=== PATIENT | male | born 1940 | race Caucasian/White ===

== ENCOUNTER 2017-05-15 18:08 | Emergency (ER) | payer MEDICARE ==
[~2017-05-15] VITALS: Ht 172.7 cm; Wt 56.0 kg
[2017-05-15] MEDS ORDERED: LISI-170 PO (19:20)
[2017-05-15 19:21] VITALS: BP 109/71
[2017-05-15] MEDS ORDERED: OXYC-296 PO (19:21)
== END 2017-05-15 20:22 | disposition home or self-care (01) ==
LOC: ED 20:15
DX: S20.211A Contusion of right front wall of thorax, initial encounter (principal); F17.210 Nicotine dependence, cigarettes, uncomplicated; W19.XXXA Unspecified fall, initial encounter; Y93.89 Activity, other specified; Y92.59 Other trade areas as the place of occurrence of the external cause; Y99.9 Unspecified external cause status
CPT/HCPCS: 99284

== ENCOUNTER 2017-05-18 18:19 | Emergency (ER) | payer MEDICARE ==
[~2017-05-18] VITALS: Ht 172.7 cm; Wt 57.6 kg
[~2017-05-18 18:19] MED LIST: LISI-170 PO; OXYC-296 PO
[2017-05-18 18:27] VITALS: BP 127/80
== END 2017-05-18 19:28 | disposition home or self-care (01) ==
LOC: ED 18:22
DX: S16.1XXA Strain of muscle, fascia and tendon at neck level, initial encounter (principal); I10 Essential (primary) hypertension; W01.0XXA Fall on same level from slipping, tripping and stumbling without subsequent striking against object, initial encounter; Y93.89 Activity, other specified; Y92.89 Other specified places as the place of occurrence of the external cause; Y99.8 Other external cause status
CPT/HCPCS: 72125; 99284

== ENCOUNTER 2021-04-18 00:40 | Emergency (ER) | payer MEDICARE, OTHER ==
[2021-04-18 00:47] VITALS: BP 118/53
[2021-04-18] MEDS ORDERED: ACETAMINOPHEN 500 MG TABLET PO ONE (02:00)
[2021-04-18] MEDS ORDERED: ACETAMINOPHEN 500 MG TABLET ONE (02:33)
== END 2021-04-18 02:44 | disposition home or self-care (01) ==
LOC: ED 01:00
DX: M25.552 Pain in left hip (principal); I10 Essential (primary) hypertension; Z72.9 Problem related to lifestyle, unspecified
CPT/HCPCS: 99282

== ENCOUNTER 2021-04-23 23:16 | Emergency (ER) | payer SELFPAY ==
[~2021-04-23] VITALS: Ht 172.7 cm; Wt 57.7 kg
[2021-04-23 23:22] VITALS: BP 134/78
--- NOTE | 2021-04-24 01:05 | NUR ---
ERP CALLED PT TO TRIAGE TO BE SEEN. PT AGGRESIVE AND YELLING AT STAFF. "FUCK YOU, YOU MOTHER FUCKERS. I NEED TO SEE ALL THE DOCTORS I WAS SUPPOSED SEE WHEN I WAS HERE LAST. FUCK YOU MOTHER FUCKERS." PT TO BE ESCORTED OUT OF ED BY SECURITY.
== END 2021-04-24 01:09 | disposition home or self-care (01) ==
LOC: ED 23:30
DX: I10 Essential (primary) hypertension (principal); Z53.21 Procedure and treatment not carried out due to patient leaving prior to being seen by health care provider